=== PATIENT | female | born 2005 | race Caucasian/White ===

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

== ENCOUNTER 2025-01-20 14:20 | Emergency (ER) | payer BC, SELFPAY ==
[2025-01-20 14:27] VITALS: BP 133/93; PULSE 71; TEMP 37.1; O2SAT 99; BMI 22.9
--- NOTE | 2025-01-20 14:40 | ECG_ITS ---
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
--- OUTSIDE RECORDS SUMMARY | 2025-01-20 14:45 | XMS_ITS | Encounter Summary ---
Author Organization [facility] Address [address] [place] [address] Care Team Providers Care Piler Name Role Phone Mark Meyer MD Unavailable Encounter Details Date Type Department Care Team (Late st Contact Info) Description 08/13/2023 Orders Only [facility] [address] [facility] [place] [address] Mark Meyer MD [address] [place] [address] Social History Tobacco Use Types Packs/Day Years Used Date Smoking Tobacco: Never Assessed Comments No Sex and Gender Information Value Date Recorded Sex Assigned at Not on file Legal Sex Female 6:36 PM EDT Gender Identity Not on file Sexual Orientation Not on file documented as of this encounter Plan of Treatment Not on file documented as of this encounter Procedures Procedure Name Priority Date/Time Associated Diagnosis Comments CT CERVICAL SPINE WO IV CONTRAST Routine 08/13/2023 9:[address] HEAD WO IV CONTRAST Routine 08/13/2023 9:38 AM EST documented in this encounter Results * CT head wo IV contrast (08/13/2023 9:38 AM EST) Anatomical Region Laterality Modality Head, Neck Computed Tomogra phy us Mark Meyer MD IMG CT PROCEDURES Final Resu lt * CT cervical spine wo IV contrast (08/13/2023 9:38 AM EST) Anatomical Region Laterality Modality Spine, C-spine Computed Tomogra phy us Mark Meyer MD IMG CT PROCEDURES Final Resu lt documented in this encounter Visit Diagnoses Not on filedocumented in this encounter Care Teams Piler Relationship Specialty Start Date End Date Mark Meyer MD [address] [place] [address] BARNEY Cota 01/06/2405/07 documented as of this encounter
--- OUTSIDE RECORDS SUMMARY | 2025-01-20 14:45 | XMS_ITS | Clinical Summary ---
Author Organization [facility] Address [address] [place] [address] Care Team Providers Care Director Corporate Sales Name Role Phone Unavailable Primary Care Provider Unavailabl e Allergies Active Allergy Reactions Criticality Noted Date Comments Penicillins Hives 06/05/2023 Medications polyethylene glycol, PEG, 3350 (MiraLax) 17 g packet Take 17 g by mouth in the morning. Active meclizine (Antivert) 25 MG tabletIndicatio ns:Vertigo Take 1/2 to 1 tablet three times daily as needed for vertigo 30 tablet 06/05/2023 Active sertraline (Zoloft) 25 MG tabletIndicatio ns:Generalized anxiety disorder Take 1 tablet (25 mg) by mouth in the morning. 90 tablet 06/13/2023 Active Active Problems Problem Noted Date Diagnosed Date Generalized anxiety disorder 06/13/2023 History of iron deficiency 06/13/2023 Immunizations Immunization Administration Dates Next Due DTaP 01/18/2006,2005 DTaP / Hep B / IPV 05/28/2006 DTaP / IPV 12/05/2010 DTaP, Unspecified 01/24/2007 Hep A, Unspecified 12/05/2010,01/24/2007 Hep B, Adolescent or Pediatric 2005 Hib (PRP-T) 01/24/2007,05/28/2006,01/18/2006 Hib / Hep B 2005 IPV 01/18/2006,2005 Influenza Whole 04/21/2013,06/25/2006,05/29/2006 Influenza, live, intranasal 05/03/2014 Influenza, seasonal, injecta ble, preservative free 05/06/2009 MMR 01/24/2007 MMRV 12/05/2010 Meningococcal MCV4, Unspecified 04/08/2018 Novel Dluxwufmy-W2T1-18, nasal 05/06/2009 Pfizer Purple Cap SARS-CoV-2 Vaccination 12/20/2020,11/29/2020 Pneumococcal Conjugate PCV 7 01/24/2007, 05/28/2006,01/18/2006,12/12 Tdap 04/08/2018 Varicella 01/24/2007 Family History Medical History Relation Name Comments Hypertension Mother Migraines Mother Thyroid disease Mother Breast cancer Other Coronary artery disease Other Diabetes Other Lung cancer Other Relation Name Status Comments Mother Other Family hx Social History Tobacco Use Types Packs/Day Years Used Date Smoking Tobacco: Never Assessed Comments No Sex and Gender Information Value Date Recorded Sex Assigned at Not on file Legal Sex Female 6:36 PM EDT Gender Identity Not on file Sexual Orientation Not on file Last Filed Vital Signs Vital Sign Reading Time Taken Comments Blood Pressure - - Pulse 82 06/13/2023 3:11 PM EST Temperature - - Respiratory Rate - - Oxygen Saturation 98% 06/13/2023 3:11 PM EST Inhaled Oxygen Concentration - - Weight 59.9 kg (132 lb) 06/13/2023 3:11 PM EST Height 157.5 cm (5' 2 ) 06/13/2023 3:11 PM EST Body Mass Index 24.14 06/13/2023 3:11 PM EST Body Mass Index Percentile 77.85% 06/13/2023 3:1 1 PM EST Growth Chart: CDC (Girls, 2- 20 Years) Plan of Treatment Health Maintenance Due Date Last Done Comments Influenza Vaccine (#1) 2025 4, 05/03/2014, 04/21/2013, Additional history exists Insurance BS [facility]
--- NOTE | 2025-01-20 14:48 | ED_ITS ---
HPI HPI - General Adult General Chief complaint: Back Pain/Injury Stated complaint: UPPER BACK PAIN Time Seen by Provider: 01/20/25 14:23 Source: patient Mode of arrival: walk-in Limitations: no limitations History of Present Illness HPI narrative: The patient is a 19-year-old female who presents to the emergency department today for evaluation concerns for back and chest pain. She endorses since last night she has had a constant pain to the medial upper back that radiates to her chest. She denies any shortness of breath. Patient mention she took ibuprofen last night and put on a topical anesthetic patch that is [id number] with no improvement in pain so proceeded to the ER. She denies any fever/chills or cough/cold symptoms. She intermittently endorses some li ghtheadedness but states it is not associated with the pain today. No syncopal episodes. She denies any abdominal pain or nausea/vomiting. She denies any smoking history. No history of VTE. Related Data Previous Rx's ?Medication ?Instructions ?Recorded cyclobenzaprine 10 mg tablet 10 mg PO TID PRN muscle s pasm #10 01/20/25 tabs Allergies Allergy/AdvReac Type Severity Reaction Status Date / Time Penicillins Allergy Severe Hives Verified 01/20/25 14:26 Opioid HPI Opioid Management Most Recent Opioid Data: Last Pain Scale 5 Today, 15:01 Last MAR Pain Assessment Today, 15:05 Review of Systems ROS Status of ROS 10 or more systems reviewed and unremark able except as noted in history and below PFSH PFSH Social History Little interest or pleasure in doing things: not at all Feeling down, depressed, or hopeless: not at all Exam Narrative Exam Narrative: Constituational: Awake/ alert, no apparent distress, well hydrated HENMT: normocephalic, external ears normal, moist oral mucous membranes and oropharynx normal Eyes: EOMI and conjunctivae normal Neck: ROM intact Chest: inspection of chest normal Respiratory: Normal respiratory effort, clear to auscultation bilaterally Cardio: regular rate and regular rhythm GI: soft to palpation and non-tender Back: +mild discomfort to upper thoracic region between scapula, no vertebral tenderness, ROM intact MSK: ROM intact, +NVI Skin: no rashes or petechiae Neuro: no focal deficits Psych: mental status grossly normal Constitutional Vital Signs, click to edit/add: Last Vital Signs Temp 98.7 F 01/20/25 14:27 Pulse 71 01/20/25 14:27 Resp 12 01/20/25 14:27 BP 133/93 H 01/20/25 14:27 Pulse Ox 99 01/20/25 14:27 O2 Del Method Room Air 01/20/25 14:27 Course Vital Signs Vital signs: Vital Signs Temperature 98.7 F 01/20/25 14:27 Pulse Rate 71 01/20/25 14:27 Respiratory Rate 12 01/20/25 14:27 Blood Pressure 133/93 H 01/20/25 14:27 Pulse Oximetry 99 01/20/25 14:27 Oxygen Delivery Method Room Air 01/20/25 14:27 Temperature 98.7 F 01/20/25 14:27 Pulse Rate 71 01/20/25 14:27 Respiratory Rate 12 01/20/25 14:27 Blood Pressure 133/93 H 01/20/25 14:27 Pulse Oximetry 99 01/20/25 14:27 Oxygen Delivery Method Room Air 01/20/25 14:27 Medical Decision Making MDM Narrative Medical decision making narrative: Patient is a well-appearing 19-year-old female who presented to the emergency department today for evaluation concerns for pain to her upper back not associated with associated with any injuries or trauma with radiation of pain to chest. Initial examination and vital signs overall stable. She does not appear to be exhibiting any ischemic symptoms and does appear euvolemic on exam. No concerning neurovascular motor findings on exam. Pain does seem to be possible strain or myalgia as she does have some point tenderness between her shoulder blades. EKG without acute changes and troponin is negative x 1. D- dimer within normal range. Low clinical suspicion for dissection. Labs stable as below. Chest x-ray additionally without critical findings. Patient did receive single dose of Toradol and on reevaluation she reported some very mild improvement in pain. She subsequently did receive cyclobenzaprine however wishes to go home and continue to treat likely muscle strain of the upper back/lower neck supportively. Will discharge home with cyclobenzaprine. Advised on follow-up with patient's primary care provider for reevaluation. Discussed signs and symptoms of any worsening condition and when to consider reevaluation by the emergency department. Patient verbalized an understanding of this and is agreeable with the plan to be discharged home. Medical Records Medical records reviewed: Yes I reviewed the patient's medical records Lab Data Lab results reviewed: Yes I reviewed the patient's lab results Labs: Lab Results 01/20/25 Range/Units 14:50 WBC 7.0 (4.0-11.0) 10^3/uL RBC 4.28 (4.20-5.40) 10^6/uL Hgb 14.0 (12.0-16.0) g/dL Hct 40.0 (36.0-48.0) % MCV 93.5 (81.0-99.0) fL MCH 32.7 (26.7-34.0) pg MCHC 35.0 (29.9-35.2) g/dL RDW 11.6 (11.0-15.0) % Plt Count 304 (150-450) 10^3/uL MPV 10.0 (9.5-13.5) fL Neut % (Auto) 48.6 (43.0-75.0) % Lymph % (Auto) 36.5 (20.5-60.0) % [place] % (Auto) 8.9 (1.7-12.0) % Eos % (Auto) 4.3 (0.9-7.0) % Baso % (Auto) 1.3 (0.2-2.0) % Neut # (Auto) 3.4 (1.4-6.5) 10^3/uL Lymph # (Auto) 2.6 (1.2-3.8) 10^3/uL [place] # (Auto) 0.6 (0.3-0.8) 10^3/uL Eos # (Auto) 0.3 (0.0-0.7) 10^3/uL Baso # (Auto) 0.1 (0.0-0.1) 10^3/uL Abs Immat Gran (auto) 0.03 (0.00-0.03) 10^3/uL Imm/Tot Granulo (auto) 0.4 (0.0-0.5) % D-Dimer <0.19 (<=0.59) mg/L FEU Sodium 142 (136-145) mmol/L Potassium 4.2 (3.5-5.1) mmol/L Chloride 105 (98-107) mmol/L Carbon Dioxide 27.8 (21.0-32.0) mmol/L Anion Gap 13.4 BUN 12.0 (6.4-19.3) mg/dL Creatinine 0.78 (0.55-1.02) mg/dL Est GFR ( Amer) >60 (>=60 mL/min/1.73m^2) Est GFR (Non-Af Amer) >60 (>=60 mL/min/1.73m^2) BUN/Creatinine Ratio 15.4 Glucose 94 (74-106) mg/dL Calcium 9.5 (8.5-10.1) mg/dL Total Bilirubin 1.0 (0.2-1.0) mg/dL AST 12 L (15-37) U/L ALT 15 (14-59) U/L Alkaline Phosphatase 90 (46-116) U/L Troponin I High Sens <4.0 L (4.0-51.3) pg/mL Total Protein 7.7 (6.4-8.2) g/dL Albumin 3.9 (3.4-5.0) g/dL Globulin 3.8 g/dL Albumin/Globulin Ratio 1.0 HCG, Quant <1 mIU/mL Imaging Data Chest x-ray: Attestation: I have reviewed the pertinent imaging results. Radiologist's impression: ITS Impressions Chest X-Ray 01/20/25 15:03 IMPRESSION: No acute cardiopulmonary pathology. Impression dictated by: Young Goetz M.D. 01/20/2025 3:10 PM Dictation Location: [place] [address] Electronically authenticated by: [id number] Y Date: 01/20/2025 15:10 ECG Data Attestation: I personally reviewed and interpreted this ECG as follows: (SB wit HR 58, no acute/ ischemic changes) Discharge Plan Discharge Chief Complaint: Back Pain/Injury Clinical Impression: Back strain Patient Disposition: Home, Self-Care Prescriptions / Home Meds: New cyclobenzaprine 10 mg tablet 10 mg PO TID PRN (Reason: muscle spasm) Qty: 10 0RF Print Language: B[place]an Instructions: Muscle Strain (DC) Additional Instructions: Continue to alternate Tylenol and ibuprofen. Rest, ice any sore areas. May apply topicals such as IcyHot. May take cyclobenzaprine as needed for any tight muscles or spasms. Please be mindful of your posture. May additionally use gentle massage to help alleviate any sore areas. With your primary care provider for reevaluation as discussed. Referrals: MARIEL VAZ [Primary Care Provider, Family Practice] - 1 week
[2025-01-20 15:01] VITALS: PULSE 58
--- NOTE | 2025-01-20 15:03 | XR_ITS ---
[address] [address] Patient Name: DARLING PEREZ MRN: [id number] date: 2005 Sex: F Assigned Patient Location: ER Current Patient Location: ER Accession/Order Number: [id number] Exam Date: 01/20/2025 15:08 Report Date: 01/20/2025 15:10 At the request of: MELODIE SMITH NP Procedure: XR chest 2V XR chest 2V 01/20/2025 3:03 PM SIGNS AND SYMPTOMS: Chest and upper back pain PROTOCOL: Frontal and lateral radiographs of the chest COMPARISON: None FINDINGS: The trachea is midline. The heart and mediastinal structures are within normal limits. The lung parenchyma is clear. The bony thorax is intact. XR/XR chest 2V IMPRESSION: No acute cardiopulmonary pathology. Impression dictated by: Young Goetz M.D. 01/20/2025 3:10 PM Dictation Location: [place] [address] Electronically authenticated by: [id number] Y Date: 01/20/2025 15:10
[2025-01-20] MEDS: KETOROLAC TROMETHAMINE 30 MG/ML VIAL IVP (15:05)
[2025-01-20 15:09] LABS: Hematocrit 40.0 % (36.0-48.0); Hemoglobin 14.0 g/dL (12.0-16.0); Immature Granulocytes Abs Auto 0.03 10^3/uL (0.00-0.03); Immature Granulocytes Pct Auto 0.4 % (0.0-0.5); Lymphocytes Absolute Auto 2.6 10^3/uL (1.2-3.8); Mean Corpuscular HGB Conc 35.0 g/dL (29.9-35.2); Mean Corpuscular Hemoglobin 32.7 pg (26.7-34.0); Mean Corpuscular Volume 93.5 fL (81.0-99.0); Platelet Count 304 10^3/uL (150-450); Red Blood Count 4.28 10^6/uL (4.20-5.40); White Blood Count 7.0 10^3/uL (4.0-11.0)
[2025-01-20 15:19] LABS: Alanine Aminotransferase 15 U/L (14-59); Albumin Globulin Ratio 1.0; Albumin Level 3.9 g/dL (3.4-5.0); Alkaline Phosphatase 90 U/L (46-116); Anion Gap 13.4; Aspartate Amino Transferase 12 U/L (15-37); Blood Urea Nitrogen 12.0 mg/dL (6.4-19.3); Calcium 9.5 mg/dL (8.5-10.1); Carbon Dioxide 27.8 mmol/L (21.0-32.0); Chloride 105 mmol/L (98-107); Estimated GFR (African America >60 (>=60 mL/min/1.73m^2); Estimated GFR (Non-African Ame >60 (>=60 mL/min/1.73m^2); Globulin 3.8 g/dL; Glucose 94 mg/dL (74-106); Potassium 4.2 mmol/L (3.5-5.1); Sodium 142 mmol/L (136-145); Total Protein 7.7 g/dL (6.4-8.2)
[2025-01-20] MEDS: CYCLOBENZAPRINE HCL 10 MG TABLET PO (16:26)
[2025-01-20 16:35] VITALS: PULSE 60; O2SAT 99
== END 2025-01-20 16:37 | disposition home or self-care (01) ==
PROVIDERS: Nurse Practitioner; Emergency Provider Emergency Medicine; PCP Family Medicine
DX: S29.012A Strain of muscle and tendon of back wall of thorax, initial encounter (principal); X58.XXXA Exposure to other specified factors, initial encounter
CPT/HCPCS: 36415; 71046; 80053; 84484; 84702; 85025; 85378; 93005; 96374; 99285; J1885